=== PATIENT | male | born 1935 | race African-American/Black ===

== ENCOUNTER 2018-06-25 14:06 | Emergency (ER) | payer MEDICARE, MEDICAID ==
[~2018-06-25] VITALS: Ht 177.8 cm; Wt 113.0 kg
[2018-06-25] MEDS ORDERED: HYDROCODONE/ACETAMINOPHEN 5/325MG TABLET PO ONE (17:30)
[2018-06-25 20:16] VITALS: BP 120/80
== END 2018-06-25 21:39 | disposition home or self-care (01) ==
LOC: ER 14:06
DX: L89.151 Pressure ulcer of sacral region, stage 1 (principal); D64.9 Anemia, unspecified; F32.9 Major depressive disorder, single episode, unspecified; Z98.890 Other specified postprocedural states
CPT/HCPCS: 99283